=== PATIENT | female | born 1975 | race Caucasian/White ===

== ENCOUNTER 2016-08-27 15:44 | Emergency (ER) | payer OTHER ==
[2016-08-27 15:17] LABS: WBC (NOT ORDERED) (RFLEX) 0 (0-5)
[2016-08-27 15:22] LABS: BASOPHILS 0.8 %; BASOPHILS ABSOLUTE 0.05 10/3/uL (0.0-0.16); EOSINOPHILS 0.6 %; EOSINOPHILS ABSOLUTE 0.04 10/3/uL (0.0-0.53); HEMATOCRIT 42.6 % (36.0-48.0); HEMOGLOBIN 14.4 g/dL (12.0-16.0); IMMATURE GRANULOCYTES 0.3 %; IMMATURE GRANULOCYTES ABSOLUTE 0.02 10/3/uL (0.0-0.11); LYMPHOCYTES 30.7 %; LYMPHOCYTES ABSOLUTE 2.02 10/3/uL (0.67-4.30); MEAN CORPUS HGB CONC 33.8 g/dL (32.0-36.0); MEAN CORPUSCULAR VOLUME 85.7 fL (80-100); MEAN PLATELET VOLUME 10.1 fL (9.2-13.0); MONOCYTES 10.6 %; NEUTROPHILS ABSOLUTE 3.76 10/3/uL (2.02-8.40); PLATELET COUNT 267 10/3/uL (150-400); RED CELL COUNT 4.97 10/6/uL (4.0-5.6)
[2016-08-27 15:24] LABS: ER CBC TAT 0 Hrs 12 Mins; MANUAL DIFF NO %; WHITE BLOOD CELLS 6.6 10/3/uL (4.5-10.5)
[2016-08-27 15:30] LABS: ASCORBIC ACID (UR NOT ORDER) NEG (NEG); BILIRUBIN, URINE NEGATIVE (NEG); ER URINALYSIS TAT 0 Hrs 18 Mins; KETONE, URINE NEGATIVE (NEG); LEUKOCYTE ESTERASE(NOT OR NEG (NEG); NITRITE (URINE) NEG (NEG)
[2016-08-27 15:41] LABS: A/G RATIO 1.2 (0.7-1.9); ALBUMIN 3.9 G/DL (3.5-5.0); ALKALINE PHOSPHATASE 54 U/L (45-117); BUN (BLOOD UREA NITROGEN) 11 MG/DL (6-23); CALCIUM, SERUM 8.7 MG/DL (8.5-10.4); CHLORIDE, SERUM 108 MMOL/L (96-112); CO2 (CARBON DIOXIDE) 29 MMOL/L (24-34); CREATININE 0.74 MG/DL (0.55-1.02); GFR AFRICAN AMERICAN 116 ML/MIN (>=60); GFR NON AFRICAN AMERICAN 100 ML/MIN (>=60); GLOBULIN 3.3 G/DL (2.5-4.1); GLUCOSE, SERUM 89 MG/DL (60-99); POTASSIUM, SERUM 3.5 MMOL/L (3.5-5.3); SGOT(AST) 15 U/L (5-40); SGPT(ALT) 23 U/L (5-65); SODIUM, SERUM 143 MMOL/L (135-148); TOTAL BILIRUBIN 0.7 MG/DL (0-1.2); TOTAL PROTEIN 7.2 G/DL (6.0-8.5)
[~2016-08-27 15:44] MED LIST: FISH-EPA1000 MG PO; METAMUCIL PO; MIRALAXPKT PO; MULTIPLE VIT PO; PRILO PO; STOOL SOFTEN100 MG PO; TOPXL25 PO; ZANTAC150 MG PO
== END 2016-08-27 17:40 | disposition home or self-care (01) ==
LOC: ER 15:44
PROVIDERS: Physician Assistant
DX: R10.10 Upper abdominal pain, unspecified (principal); R10.816 Epigastric abdominal tenderness; I10 Essential (primary) hypertension; Z90.710 Acquired absence of both cervix and uterus; Z91.041 Radiographic dye allergy status; Z79.899 Other long term (current) drug therapy
CPT/HCPCS: 74176; 80053; 81001; 83690; 84703; 85025; 99284; A9270-GY